=== PATIENT | female | born 1955 | race Caucasian/White ===

== ENCOUNTER 2018-02-17 11:07 | Day surgery (SDC) | payer MEDICARE ==
--- NOTE | 2018-02-17 07:16 | History and Physical - [facility] ---
CHIEF COMPLAINT/HISTORY OF CHIEF COMPLAINT: This patient presents with a history of intractable pain which is low back and bilateral lower extremity. The history is chronic. There has been no spinal surgery although multiple surgical evaluations suggested no surgery. Her diagnostic studies show extensive multiple level disk abnormalities from L3-L4 to L5-S1, multiple level spondylosis with spinal stenosis at L4-L5. Due to the failure of all therapy she is here for an intraspinal infusion system trial infusing Hydromorphone to determine if the implantation of a permanent system can be of any value in pain control. PAST MEDICAL HISTORY: Asthmatic bronchitis, cardiac arrhythmias, bladder dysfunction, degenerative arthritis, fibromyalgia, depression and difficulty sleeping. PAST SURGICAL HISTORY: section, breast surgery, and knee surgery. EMPLOYMENT STATUS: Retired. MEDICATIONS ON ADMISSION: List to be provided. ALLERGIES: List to be provided. FAMILY/PSYCHOSOCIAL HISTORY: Social history - Smoking. Family history - Thyroid disease, asthma, diabetes, degenerative arthritis, coronary artery disease, hypertension and cancer. SYSTEMS REVIEW: The patient is appropriate in no acute distress at this time. PHYSICAL EXAMINATION: Height and weight not known. Vital signs are not available. HEENT: Within normal limits. LUNGS: Clear. HEART: Regular rate and rhythm. ABDOMEN: Nontender. MUSCULOSKELETAL: Examination of the musculoskeletal system shows diffuse tenderness throughout the lumbar spine. Range of motion does produce pain into both legs across the front and back surface. Motor and sensory field abnormalities are identified. There is sensory weakness across L4-L5 pattern. There is motor weakness across the front and back surface of both legs. Ambulation - Assistive device utilized. NEUROLOGIC: Cranial nerves are intact. IMPRESSION: INTRACTABLE LUMBAR RADICULOPATHY, ICD-10 CODE M54.16 AND M54.17. PLAN: The patient is here for an implanted spinal catheter for an infusion trial of Hydromorphone to determinate if the implantation of a permanent system can be of any value in pain control. As suggested and indicated as a requirement for the trial she has weaned off most all of her medications. She attempted a spinal cord stimulator trial with no success. She is here for implanted catheter infusion trial with Hydromorphone. An epidural blood patch will be performed at the conclusion of the procedure which will require she lay flat for four hours slowly elevate for one. The potential risks, side effects, and complications were reviewed including spinal cord injury, nerve root injury , paralysis, and spinal headache. Information was provided via the designer/writer was provided, reviewed and discussed. Direct contact with a clinical specialist from [employer] provided. The procedure will be considered outpatient although an overnight stay will be evaluated. JOB NUMBER: [id number] MTDD
[~2018-02-17 11:07] MED LIST: ACETAMINOPHEN 1,000 MG/100 ML BTL IV ONE; CLINDAMYCIN 600MG/50ML PREMIX 600 MG/50 ML BAG IVPB ONE; FAMOTIDINE 20MG TABLET PO ONE; HYDROMORPHONE IV ONE; HYDROMORPHONE PF 2MG/ML AMP 0.008 MG in 0.9 % SODIUM CHLORIDE 10ML VIA 0.996 ML IV ONE; MECLIZINE 25 MG TABLET PO ONE; METOCLOPRAMIDE 10 MG TABLET PO ONE; SODIUM CHLORIDE 0.9% IV ONE
[2018-02-17] MEDS ORDERED: BUPIVACAINE 0.5% W/EPI MPF 30 ML VIAL IVP ONE (11:08)
[2018-02-17] MEDS ORDERED: LIDOCAINE 1% W/EPI 1:200,000 MPF 30ML SQ ONE (11:08)
[2018-02-17] MEDS ORDERED: LIDOCAINE 2% MDV (20MG/ML) 20ML VIAL IV ONE (11:08)
[2018-02-17] MEDS ORDERED: FENTANYL PF 100MCG/2ML VIAL IV ONE (11:08)
[2018-02-17] MEDS ORDERED: MIDAZOLAM HCL 2MG/2ML VIAL IV ONE (11:08)
[2018-02-17] MEDS ORDERED: PROPOFOL 10 MG/ML VIAL IV ONE (11:08)
[2018-02-17] MEDS ORDERED: *PACU ONLY* KETAMINE HCL 10 MG/ML (20ML) VIAL IV ONE (11:08)
[2018-02-17] MEDS ORDERED: DIPHENHYDRAMINE HCL 50 MG/ML VIAL IVP PRN ×2 (16:34)
[2018-02-17] MEDS ORDERED: METOCLOPRAMIDE 10 MG TABLET PO PRN (16:34)
[2018-02-17] MEDS ORDERED: TEMAZEPAM 15 MG CAPSULE PO PRN ×2 (16:34)
[2018-02-17] MEDS ORDERED: DIPHENHYDRAMINE HCL 25 MG CAPSULE PO PRN ×2 (16:34)
[2018-02-17] MEDS ORDERED: SENNOSIDES/DOCUSATE SODIUM UD CAPSULE PO PRN ×2 (16:34)
[2018-02-17] MEDS ORDERED: NICOTINE POLACRILEX 2 MG GUM BC PRN ×2 (16:34)
[2018-02-17] MEDS ORDERED: METOCLOPRAMIDE HCL 10 MG/2 ML VIAL IVP PRN (16:34)
[2018-02-17] MEDS ORDERED: ACETAMINOPHEN 325 MG TAB PO PRN ×2 (16:34)
[2018-02-17] MEDS ORDERED: HYDROMORPHONE HCL 2 MG/ML VIAL IM PRN ×2 (16:34)
[2018-02-17] MEDS ORDERED: HYDROCODONE/APAP 7.5/325MG TABLET PO PRN ×2 (16:34)
[2018-02-17] MEDS ORDERED: AL HYDROX/MAG HYDROX 30ML UD PO PRN (16:34)
[2018-02-17] MEDS ORDERED: OXYCODONE/APAP 10MG-325MG TABLET PO PRN ×2 (16:34)
[2018-02-17] MEDS ORDERED: RINGERS SOLUTION,LACTATED 1,000 ML IV SCH (16:34)
[2018-02-17] MEDS ORDERED: CLINDAMYCIN 600MG/50ML PREMIX 600 MG/50 ML BAG IVPB SCH (18:30)
[2018-02-17] MEDS ORDERED: GABAPENTIN 800 MG PO SCH (22:00)
[2018-02-17] MEDS ORDERED: MONTELUKAST SODIUM 10MG TABLET PO SCH (22:00)
[2018-02-17] MEDS ORDERED: TRAZODONE 50 MG TABLET PO SCH (22:00)
[2018-02-17] MEDS ORDERED: SYMBICORT INH SCH (22:00)
[2018-02-17] MEDS ORDERED: ALBUTEROL HFA 8 GM INHALER INH SCH (22:00)
[2018-02-18] MEDS ORDERED: FUROSEMIDE 40 MG TABLET PO SCH (10:00)
[2018-02-18] MEDS ORDERED: FLUOXETINE HCL 20 MG CAPSULE PO SCH (10:00)
[2018-02-18] MEDS ORDERED: NICOTINE14 MG/24 HOUR PATCH TD SCH (10:00)
--- NOTE | 2018-02-20 07:09 | Operative Note ---
DATE OF SURGERY: 02/17/18 PRE-OP DIAGNOSES: POST LUMBAR LAMINECTOMY SYNDROME, ICD-10 CODE = M96.1 WITH RADICULOPATHY, ICD-10 CODE = M54.16 AND M54.17. OPERATION: 1. FLUOROSCOPICALLY-GUIDED SPINAL ACCESS SUBARACHNOID SPACE AT L3-4. PLACEMENT OF THIN-WALLED SPINAL CATHETER T11-12. 2. DIAGNOSTIC MYELOGRAPHY WITH RADIOLOGIC SUPERVISION AND INTERPRETATION. 3. BOLUS SPINAL OPIOID HYDROMORPHONE 0.004 MG SPINAL SPACE. 4. INCISION, SUBCUTANEOUS DISSECTION, AND ANCHORING OF SPINAL CATHETER TO SUPRASPINOUS FASCIA WITH ANCHORING DEVICE AND NONABSORBABLE SUTURE. 5. INCISION, SUBCUTANEOUS DISSECTION, AND CREATION OF SUBCUTANEOUS POUCH AT LEFT POSTERIOR GLUTEAL MARGIN FOR PLACEMENT OF SECONDARY CATHETER. 6. TUNNELING MIDLINE SPINAL CATHETER INTO LEFT POSTERIOR GLUTEAL POUCH WITH TUNNELING TOOL. INTERFACE SPINAL CATHETER AT POUCH WITH CATHETER COMPONENT BY WAY OF CONNECTOR TUNNELING SECOND CATHETER COMPONENT 6 SM SUPERIOR FROM POSTERIOR POUCH. INTERFACE EXTERNAL CATHETER TO PUMP SET TO DELIVER HYDROMORPHONE AT 0.08 MG PER DAY. 7. CLOSURE OF MIDLINE INCISION, 2-0 STRATAFIX SUTURE FOR FASCIA, RUNNING NYLON FOR SKIN. CLOSURE OF LEFT POSTERIOR POUCH USING RUNNING NYLON. 8. EPIDURAL BLOOD PATCH AT L4-5, 20 ML AUTOLOGOUS BLOOD STERILE TECHNIQUE FROM LEFT ANTECUBITAL. 9. TRANSFER PATIENT TO RECOVERY FLAT, PILLOW UNDER HEAD AND KNEES. STERILE DRESSING APPLIED SECURING CATHETER AND ALL CONNECTIONS UNDER STERILE DRESSING. SURGEON: SADIE OSEI D.O. ANESTHESIA: LOCAL SEDATION. ANESTHESIA PROVIDER: CHICHO PABLO CRNA. INDICATION: This patient presents with a history an intractable lumbar radiculopathy. Due to the failure of all therapy, she is here for a spinal infusion trial with Hydromorphone to determine if the implantation of a permanent system can be of any value in pain control. PROCEDURE: Intravenous line, vital sign monitoring, IV sedation, prepped and draped sterile technique. Patient position prone. Sterile technique, under imaging and local for infiltration, the spinal interspace at L3-4 identified and marked and infiltrated. A 20-gauge spinal needle beveled with a long axis, inserted into the subarachnoid space. Under AP and lateral imaging, CSF flow noted. A thin-wall spinal catheter was advanced and positioned T11-12. Skin above and below the needle infiltrated, incision made, and subcutaneous dissection was conducted to the supraspinous fascia. The needle was removed and the catheter was anchored to the supraspinous fascia with an anchoring device and nonabsorbable suture. There was still CSF noted coming through the catheter. Diagnostic myelography was performed; resulting flow characteristics were appropriate for the space. Smooth linear catheter tip identified at 11-12. With the confirmation of appropriate flow characteristics, a bolus of Hydromorphone 0.004 mg given into the spinal space. Catheter clamped to stop CSF leak, which was still noted through the catheter. At the left posterior gluteal margin, a site ultimately for the pump, skin infiltrated, incision made , and subcutaneous dissection was conducted to form a small pouch. The spinal catheter was then tunneled into the posterior gluteal pouch. This catheter was then interfaced with a second catheter component by way of a connector. The second catheter component was tunneled 6 cm superior from this spot exiting the skin. The externalized catheter was then interfaced to an external pump, which was set to deliver Hydromorphone at 0.08 mg a day. The midline incision was closed with STRATAFIX for the fascia and a running nylon for skin. The left posterior gluteal margin pouch was closed with running nylon. An epidural blood patch was then performed at L4-5 using 20 mL of autologous blood drawn sterile technique from the left antecubital. Dressing was applied securing the catheter and all connections under sterile dressing. She was transported to the Recovery Room stable, flat, pillow under head and knees. She will be monitored for hour hours, slowly elevated for one and if stable, considered as a possible discharge by her request. As should be noted, during the initial catheter placement, tissues were used to open up some of the fascial plane and a possible melissa to the catheter. The catheter was resected and a second connector with a catheter component was placed to ensure no loss of CSF. The nicked catheter component was resected out and reconnected to intact catheter. Patient will be monitored until stable. DISCHARGE INSTRUCTIONS: 1. Sites to remain clean and dry. No showering or bathing in any way that would disrupt dressings. If it happens, contact the clinic. 2. Standard medications resumed including Levaquin, the antibiotic, 500 mg once a day for 14 days. 3. Spinal opioid side-effects; respiratory depression, nausea, vomiting, constipation, urinary retention, light-headedness, or rash have all been discussed and reviewed. 4. The office will contact the patient in 24-48 hours where she will be brought in for her first increase doubling the dose. We will set up a total of three possible increases during the two week trial period. At the end of the two week trial period, we will either remove the implanted catheter or implant the pump. All other instructions provided, numbers to contact with problems given. We will evaluate at that point. cc: Dr. Kristine Morel JOB NUMBER: [id number] MTDD
--- NOTE | 2018-02-21 14:03 | RADIOLOGY REPORT ---
EXAM: SPINE, 1 VIEW HISTORY: PAIN PUMP TRIAL. TECHNIQUE: Single AP portable view of the thoracolumbar spine extending from the approximate T4 level down into the mid sacrum. COMPARISON: No prior spine series with which to compare. FINDINGS: Prominent spurring in the visualized thoracic spine extending into the upper lumbar spine with less prominent spurring in the lower lumbar spine. Minor tilting of the thoracic spine to the left. There is an apparent pain pump catheter extending over the lumbar spine with a small metallic dot overlying the T12 vertebra presumably the superior extent of the catheter. Linear metallic density overlying the left side of the lower lumbar spine and also a similar linear metallic density projecting just lateral to the left iliac wing are presumably a portion of the catheter device itself. IMPRESSION: PAIN PUMP CATHETER IN PLACE PROBABLY EXTENDING UP TO THE T12 LEVEL. CORRELATION WITH THE PROCEDURE ITSELF SUGGESTED. JOB NUMBER: [id number] MTDD
== END 2018-02-17 19:25 | disposition home or self-care (01) ==
LOC: SUR 11:07 → MEDSURG 15:17 → SUR 19:25
PROVIDERS: ATTEND Pain Medicine Interventional Pain Medicine
DX: M96.1 Postlaminectomy syndrome, not elsewhere classified (principal); M54.16 Radiculopathy, lumbar region; M54.17 Radiculopathy, lumbosacral region; J45.909 Unspecified asthma, uncomplicated; F31.9 Bipolar disorder, unspecified; M79.7 Fibromyalgia; M19.90 Unspecified osteoarthritis, unspecified site
CPT/HCPCS: 62350; 62360; 62273; 01936; 72020; Q9967; J3010; J1170 ×2; J7040; J7120

== ENCOUNTER 2018-03-10 13:19 | Day surgery (SDC) | payer MEDICARE ==
--- NOTE | 2018-03-10 08:17 | History and Physical - [facility] ---
CHIEF COMPLAINT/HISTORY OF CHIEF COMPLAINT: This patient with a history of post lumbar laminectomy radiculopathy has an implanted spinal catheter infusion trial with Fentanyl and Bupivacaine changed from Dilaudid because of side effects. She has achieved perhaps 75% pain control. She is here for implantation of a permanent system. PAST MEDICAL HISTORY: Asthmatic bronchitis, cardiac arrhythmias, bladder dysfunction, degenerative arthritis, fibromyalgia, and difficulty sleeping. PAST SURGICAL HISTORY: section, breast surgery, and knee surgery. MEDICATIONS ON ADMISSION: List to be provided. ALLERGIES: To be provided. FAMILY/PSYCHOSOCIAL HISTORY: Social history - Smoking. Family history - Thyroid disease, asthma, diabetes, degenerative arthritis and cancer. SYSTEMS REVIEW: The patient is appropriate in no acute distress. PHYSICAL EXAMINATION: Examination of the patient shows that the just implanted catheter trial to be intact. The pump infusing Fentanyl and Bupivacaine is intact. The remainder of the physical examination is unchanged. IMPRESSION: INTRACTABLE LUMBAR RADICULOPATHY, ICD-10 CODE M54.16 AND M54.17. PLAN: We implanted the spinal catheter infusing a trial of Fentanyl and Bupivacaine. This procedure will be considered outpatient. Side effects and complications were reviewed and discussed. JOB NUMBER: [id number] MTDD
[~2018-03-10 13:19] MED LIST changes: +BUPIVACAINE HCL IV ONE; +FENTANYL CITRATE IV ONE; +FENTANYL PF 100MCG/2ML VIAL IVP ONE; -HYDROMORPHONE IV ONE; -HYDROMORPHONE PF 2MG/ML AMP 0.008 MG in 0.9 % SODIUM CHLORIDE 10ML VIA 0.996 ML IV ONE; -SODIUM CHLORIDE 0.9% IV ONE; +[UNRECOGNIZED DRUG - OTHER] IV ONE
[2018-03-10] MEDS ORDERED: FENTANYL PF 100MCG/2ML VIAL IV ONE (13:20)
[2018-03-10] MEDS ORDERED: PROPOFOL 10 MG/ML VIAL IV ONE (13:20)
[2018-03-10] MEDS ORDERED: BUPIVACAINE 0.5% W/EPI MPF 30 ML VIAL IVP ONE (13:20)
[2018-03-10] MEDS ORDERED: MIDAZOLAM HCL 2MG/2ML VIAL IV ONE (13:20)
[2018-03-10] MEDS ORDERED: LIDOCAINE 1% W/EPI 1:200,000 MPF 30ML SQ ONE (13:20)
[2018-03-10] MEDS ORDERED: CLINDAMYCIN (PEDIATRIC DOSING) 150 MG/ML VIAL IVPB ONE (13:20)
[2018-03-10] MEDS ORDERED: LIDOCAINE 2% MDV (20MG/ML) 20ML VIAL IV ONE (13:20)
[2018-03-10] MEDS ORDERED: HYDROMORPHONE HCL 2 MG/ML VIAL IV ONE (13:20)
[2018-03-10] MEDS ORDERED: OXYCODONE/APAP 10MG-325MG TABLET PO ONE (13:20)
--- NOTE | 2018-03-13 09:19 | Operative Note ---
DATE OF SURGERY: 03/10/18 PREOPERATIVE DIAGNOSES: 1. INTRACTABLE LUMBAR RADICULOPATHY, ICD-10 CODE = M54.16 AND M54.17. 2. IMPLANTED SPINAL CATHETER INFUSION TRIAL FENTANYL AND BUPIVACAINE. OPERATION: 1. INCISION, SUBCUTANEOUS DISSECTION, AND CREATION OF SUBCUTANEOUS POUCH AT LEFT POSTERIOR/SUPERIOR GLUTEAL MARGIN FOR PLACEMENT OF PUMP IDENTIFIED [employer] 20 ML PROGRAMMABLE. 2. REVISION, RESECTION, REMOVAL OF EXTERNAL PORTION OF SPINAL CATHETER. REVISE, RESECT INTERNAL CATHETER INTERFACING WITH SECOND CATHETER COMPONENT BY WAY OF CONNECTOR. 3. INTERFACE SECOND CATHETER COMPONENT WITH PUMP PLACED ONTO FIELD, 20 ML PROGRAMMABLE [employer] PRE-FILLED FENTANYL AND BUPIVACAINE. 4. PLACEMENT OF PUMP CATHETER COMBINATION INTO POUCH SECURING TO POSTERIOR FASCIA WITH NONABSORBABLE SUTURE, THREE POINTS PUMP EYELETS. 5. PLACEMENT OF CURVED 24-GAUGE ALEXANDER NEEDLE INTO ACCESS PORT PROGRAMMABLE PUMP , ASPIRATION CLEARING CATHETER OF OPIOID AND A CSF MIXTURE. 6. DIAGNOSTIC MYELOGRAPHY WITH RADIOLOGIC SUPERVISION AND INTERPRETATION. 7. PROGRAMMING OF PUMP TO DELIVER BY FENTANYL AND BUPIVACAINE AT A FENTANYL DOSE OF 230 MCG PER DAY. 8. INCISION CLOSED STRATAFIX SUTURE 2-0 FASCIA AND 3-0 SUBCUTICULAR. DERMABOND CLOSURE. SURGEON: SADIE OSEI D.O. ANESTHESIA: LOCAL SEDATION. ANESTHESIA PROVIDER: CIRO PABLO CRNA INDICATION: This patient presents with a history of an intractable lumbar radiculopathy. Due to the failure of therapy, an implanted spinal catheter infusion trial was initiated roughly two to three weeks ago. Initially, Hydromorphone, which did result in side-effects. Medication change from Hydromorphone to Fentanyl/Bupivacaine with pain control and no side-effects. She is here by her request for full implantation. PROCEDURE: Intravenous line, vital sign monitoring, IV sedation by Anesthesia, Ciro Pablo. Patient position on the operating room table prone. Sterile prep, sterile technique. At the left posterior gluteal margin midline, the previous incision for the implanted catheter was infiltrated with local. The running nylon suture was removed. Incision, subcutaneous dissection, and creation of a subcutaneous pouch at left posterior gluteal margin, appropriate size and depth for a pump identified as a [employer] 20 mL Programmable. The previous interface between the indwelling and external catheters was marked and identified. The interface was clamped, cut and the external catheter was removed by pulling away from the incision. The indwelling catheter was then revised and resected with a new catheter component by way of a connector. The new catheter component was then interfaced with a pump placed onto the field [employer] 20 mL Programmable pre-filled Fentanyl and Bupivacaine. With the pump catheter connection made, antibiotic irrigation and Bovie for hemostasis at the pouch, then the pump was placed into the pouch secured to the posterior fascia with nonabsorbable suture at three points pump eyelets. With the pump in the pouch, a 24-gauge Alexander needle was inserted into the access port and contrast was injected; the resulting myelogram with radiologic supervision and interpretation showed catheter flow characteristics appropriate for the space. Tip of the catheter at 12-1 identified. There were no obstructions, leaks, or abnormalities of flow for catheter. With this confirmation of functionality, the incision was closed using STRATAFIX suture 2-0 fascia and 3-0 subcuticular. Dermabond closure approximating the edges of the wound. The pump was programmed to deliver Fentanyl and Bupivacaine with a Fentanyl dose of 230 mcg per day. She was transported to the Recovery Room stable. No side-effects from the procedure or the sedation. When fully awake and alert, she was prepared for discharge. DISCHARGE INSTRUCTIONS: 1. Sites remain clean and dry. No showering or bathing in any way that would disrupt dressings. If it happens, contact the clinic. 2. Standard medications resumed including Clindamycin, the antibiotic. She will continue for 7 more days. 3. Spinal opioid side-effects; respiratory depression, nausea, vomiting, constipation, urinary retention, light headedness or rash have all been discussed and reviewed. All other instructions provided, numbers to contact with problems given, she was then discharged. cc: Dr. Kristine Morel JOB NUMBER: [id number] MTDD
== END 2018-03-10 18:03 | disposition home or self-care (01) ==
LOC: SUR 13:19
PROVIDERS: ATTEND Pain Medicine Interventional Pain Medicine
DX: M54.16 Radiculopathy, lumbar region (principal); M54.17 Radiculopathy, lumbosacral region; I10 Essential (primary) hypertension; J45.909 Unspecified asthma, uncomplicated; F31.9 Bipolar disorder, unspecified; F17.210 Nicotine dependence, cigarettes, uncomplicated
CPT/HCPCS: 62350; 62362; 00300; 62367; Q9967; J3010 ×2; J1170; C1755